=== PATIENT | male | born 1940 | race Caucasian/White ===

== ENCOUNTER → 2021-02-02 | Outpatient (CLI) | payer MEDICAID ==
[~2021-02-02] MED LIST: ALBU8.5H8 IH; AMLO-258 PO; CHOL500043 PO; PARO-38 PO; TAMS-13 PO; TRAM50TA4 PO
[2021-02-02 10:03] VITALS: BP 132/70
== END | disposition home or self-care (01) ==
LOC: SRCNTR 09:41
PROVIDERS: ATTEND Internal Medicine Critical Care Medicine
DX: J45.20 Mild intermittent asthma, uncomplicated (principal); I10 Essential (primary) hypertension; K21.9 Gastro-esophageal reflux disease without esophagitis; R16.0 Hepatomegaly, not elsewhere classified; N40.0 Benign prostatic hyperplasia without lower urinary tract symptoms; M19.90 Unspecified osteoarthritis, unspecified site; H91.90 Unspecified hearing loss, unspecified ear; K58.8 Other irritable bowel syndrome; F41.9 Anxiety disorder, unspecified
CPT/HCPCS: G0463; Z7500